=== PATIENT | female | born 1965 | race Hispanic/Latino ===

== ENCOUNTER 2017-03-21 10:44 | Outpatient (CLI) | payer OTHER ==
[2017-03-21 11:33] LABS: Hemoglobin 10.9 g/dL (12.0-16.0); Mean Corpuscular HGB CONC 33.4 g/dL (32.0-36.0); Mean Corpuscular Hemoglobin 29.7 pg (27.0-31.0); Mean Platelet Volume 5.6 fL (7.4-10.4); Platelet Count 401 thou/uL (130-400); RBC Distribution Width 13.7 % (11.5-14.5); Red Blood Cell (RBC) Count 3.66 mill/uL (4.20-5.40); White Blood Cell (WBC) Count 4.4 thou/uL (4.8-10.8)
== END 2017-03-21 10:45 | disposition home or self-care (01) ==
LOC: LABBT 10:44
PROVIDERS: ATTEND Obstetrics & Gynecology
DX: Z01.812 Encounter for preprocedural laboratory examination (principal); N92.0 Excessive and frequent menstruation with regular cycle
CPT/HCPCS: 85027; 86850; 86900; 86901

== ENCOUNTER 2017-03-23 09:57 | Day surgery (SDC) | payer OTHER ==
[2017-03-21 11:07] VITALS: BMI 31.8
--- NOTE | 2017-03-22 16:10 | HP ---
DATE OF PLANNED PROCEDURE: 03/23/2017 PREOPERATIVE DIAGNOSIS: Abnormal uterine bleeding PROCEDURES TO BE PERFORMED: Hysteroscopy and D&C. HISTORY OF PRESENT ILLNESS: Ms. Alanna Amaral is a 52-year-old G8, P4-0-4-4, referred for abnormal [place] bleeding. The patient gives a history of irregular bleeding as well as very heavy bleeding for the last few years. She has large clots, has menstrual accidents and complains of cramping that is v samreen intense. She has a history of anemia with hemoglobin of 9.0 in 11/2016. She denies any history of previous blood transfusions. She denies taking any medications in the past to help regulate her p eriod. On initial examination, an endometrial biopsy was indicated and due to cervical stenosis endo metrial biopsy was not able to be completed. The patient was counseled for the need for endometrial sampling to rule out hyperplasia or malignancy. CURRENT MEDICATIONS: Bupropion, cyclobenzaprine, hydrochlorothiazide, lamotrigine, levothyroxine, an d lisinopril. PAST MEDICAL HISTORY: Hypertension, hypothyroidism, depression and anxiety. PAST SURGICAL HISTORY: Tubal ligation and section. OBSTETRICAL HISTORY: Three vaginal deliveries, one section, 4 miscarriages. Her largest va ginal delivery was over 8-1/2 pounds. GYNECOLOGIC HISTORY: No history of STD or PID. Last Pap smear was normal per the patient report 201 [id number] and her last menstrual period began on 03/11/2017. SOCIAL HISTORY: The patient smokes 5 cigarettes a day. 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 ALLERGIES: She denies any allergies. FAMILY HISTORY: Significant for diabetes, stroke, and hypertension in her parents and siblings. REVIEW OF SYSTEMS: Negative except as stated in HPI. PHYSICAL EXAMINATION: VITAL SIGNS: Blood pressure 128/80, pulse 70, weight 177 pounds, BMI 31.4. GENERAL: No acute distress, alert and oriented, well-nourished. HEENT: Grossly normal. LUNGS: Clear to auscultation bilaterally. CARDIOVASCULAR: No clubbing, no murmurs, rubs or gallops. ABDOMEN: No guarding, no tenderness. No palpable masses. No hepatosplenomegaly. GENITOURINARY: Normal urethral meatus. Normal external female genitalia, normal vaginal mucosa, orquidea notic cervix with bleeding noted coming from the cervix, no cervical motion tenderness. No uterine t enderness, no adnexal masses or tenderness. Perineum normal. MUSCULOSKELETAL: Grossly normal. SKIN: Normal. DIAGNOSTIC STUDIES: Hemoglobin 10.3. Office ultrasound describes uterus at 10 x 4 cm with an endome trial stripe of 11.44 mm, small and normal appearing right and left ovaries and no free fluid. ASSESSMENT AND PLAN: Ms. Alanna Amaral is a 52-year-old multiparous female with history of menorrhagia with irregular cycle. We have discussed possible causes which are anovulatory or perimenopausal as well as the risk of hyperplasia or malignancy. The patient understands that there is an indication f or endometrial sampling, answer unable to complete in the office, it is recommended for her to underg o endometrial sampling with hysteroscopy, dilation and curettage. We discussed future management bas ed on the pathologic findings of dilation and curettage. The patient agrees and understands that fut ure options for management may include medical versus surgical with ablation versus hysterectomy. Th e patient's questions have been answered to her satisfaction. She understands the risks are to inclu de, but not limited to bleeding, infection, uterine perforation, inability to fully diagnose and jerome t all conditions at the time of surgery and possible need for future medical and/or surgical manageme nt.
[2017-03-23] MEDS ORDERED: CEFAZOLIN/Water 2 GM/20 ML SYRINGE ONE (10:34)
[2017-03-23] MEDS ORDERED: Midazolam HCl 2 mg/2 ml Vial ONE (11:37)
[2017-03-23] MEDS ORDERED: Fentanyl 100 MCG/2 ML VIAL ONE (11:38)
[2017-03-23] MEDS ORDERED: Meperidine HCl/PF 25 MG/ML VIAL ONE (11:38)
--- NOTE | 2017-03-23 14:20 | OP ---
DATE OF PROCEDURE: 03/23/2017 PREOPERATIVE DIAGNOSIS: Postmenopausal bleeding. POSTOPERATIVE DIAGNOSIS: Postmenopausal bleeding. PROCEDURES PERFORMED: Hysteroscopy, cervical dilation and curettage and hysteroscopic polypectomy. SURGEON: Curt Sotelo D.O. SERVICE MEMBER: None. ESTIMATED BLOOD LOSS: Less than 5 mL COMPLICATIONS: None. INTRAOPERATIVE FLUID DEFICIT: Approximately 400 mL. INTRAOPERATIVE FINDINGS: 1. Scarring at the external cervical os noted that is best described as a thin septum 2. Uterus sounds to 6 cm. 3. Intracervical polyp noted. 4. Proliferative appearing endometrium with polypoid-appearing tissue at the anterior aspect of the endometrium. 5. Tubal ostia identified bilaterally. 6. Normal vaginal mucosa. PROCEDURE DETAILS: The patient was taken back to the OR with IV fluids running. Once she was in the OR, anesthesia was obtained and the patient was placed in low dorsal lithotomy position. The vagina was prepped and draped in normal fashion for hysteroscopy. The bladder was drained with a red rubbe r catheter. An operative speculum was placed into the vagina after the surgeon was scrubbed in. The anterior lip of the cervix was grasped with a single tooth tenaculum. Close inspection of the cervi x revealed a septum at the ectocervix. The cervix was then serially dilated to offer passage of the hysteroscope. This was done without trauma or difficulty. Next, the hysteroscope was passed through the cervical canal under direct visualization. The polypoid-appearing tissue was noted at the endoc ervix. Uterine cavity was distended with the above findings noted. The TruClear incisor was used fo r polypectomy, both the endometrial and ectocervical polypoid appearing tissues. After these tissues were resected, the instruments were removed. Of note, prior to tissue resection, gentle curettage w as performed. The endometrial and endocervical tissues were sent for pathologic review. The curetti ngs were sent separate from the tissue resected with a hysteroscopic resector. At the end of the indra e, the tenaculum site was inspected and no bleeding was noted. There was no bleeding from the cervix . The operative speculum was removed. The patient was cleaned, dried, taken out of lithotomy and tr ansferred to recovery room in good condition.
[2017-03-23] MEDS ORDERED: Ondansetron HCl/PF 4 MG/2 ML Vial ONE (14:50)
[2017-03-23] MEDS ORDERED: Dexamethasone 20 MG/5 ML VIAL ONE (14:50)
[2017-03-23] MEDS ORDERED: Propofol 200 MG/20 ML VIAL ONE (14:50)
[2017-03-23] MEDS ORDERED: Lidocaine 1% PF 5 ML VIAL ONE (14:50)
== END 2017-03-23 14:15 | disposition home or self-care (01) ==
LOC: SDC 09:57
PROVIDERS: ATTEND Obstetrics & Gynecology
DX: N84.0 Polyp of corpus uteri (principal); F17.210 Nicotine dependence, cigarettes, uncomplicated; Z79.899 Other long term (current) drug therapy; Z98.51 Tubal ligation status; Z98.891 History of uterine scar from previous surgery; Z98.890 Other specified postprocedural states
CPT/HCPCS: 88305; J1100; J2001; J2175; J2250; J2405; J2704; J3010

== ENCOUNTER 2017-04-15 19:30 | Outpatient (CLI) | payer OTHER | END 2017-04-15 19:31 | disposition home or self-care (01) | LOC: SLEEPLAB 19:30 | PROVIDERS: ATTEND Student in an Organized Health Care Education/Training Program | DX: G47.33 Obstructive sleep apnea (adult) (pediatric) (principal); R53.83 Other fatigue; E66.9 Obesity, unspecified; K21.9 Gastro-esophageal reflux disease without esophagitis; F41.8 Other specified anxiety disorders; I10 Essential (primary) hypertension | CPT/HCPCS: 95810 ==

== ENCOUNTER 2017-05-16 19:30 | Outpatient (CLI) | payer OTHER | END 2017-05-16 19:31 | disposition home or self-care (01) | LOC: SLEEPLAB 19:30 | PROVIDERS: ATTEND Student in an Organized Health Care Education/Training Program | DX: G47.33 Obstructive sleep apnea (adult) (pediatric) (principal); E66.9 Obesity, unspecified; F41.8 Other specified anxiety disorders; I10 Essential (primary) hypertension; G47.52 REM sleep behavior disorder | CPT/HCPCS: 95811 ==

== ENCOUNTER 2017-07-21 15:11 | Outpatient (CLI) | payer OTHER | END 2017-07-21 15:12 | disposition home or self-care (01) | LOC: BICMAMMO 15:11 | PROVIDERS: ATTEND Obstetrics & Gynecology | DX: Z12.31 Encounter for screening mammogram for malignant neoplasm of breast (principal) | CPT/HCPCS: 77063; 77067 ==

== ENCOUNTER 2018-03-01 10:46 | Emergency (ER) | payer OTHER ==
[2018-03-01] MEDS ORDERED: Acetaminophen 500 MG TAB ONE (13:43)
[2018-03-01] MEDS ORDERED: Metoclopramide HCl 10 MG TAB PO SCH (14:00)
[2018-03-01] MEDS ORDERED: Ketorolac Tromethamine 30 MG/ML VIAL ONE (14:15)
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
== END 2018-03-01 15:07 | disposition home or self-care (01) ==
LOC: ERS 10:46
DX: S06.0X0A Concussion without loss of consciousness, initial encounter (principal); E03.9 Hypothyroidism, unspecified; I10 Essential (primary) hypertension; F41.9 Anxiety disorder, unspecified; F31.9 Bipolar disorder, unspecified; F20.9 Schizophrenia, unspecified; Z79.899 Other long term (current) drug therapy; W22.8XXA Striking against or struck by other objects, initial encounter
CPT/HCPCS: 70450; 72125; 96372; J1885

== ENCOUNTER 2018-05-08 11:43 | Emergency (ER) | payer OTHER ==
[2018-05-08] MEDS ORDERED: Ondansetron ODT 4 MG TAB ONE (12:17)
[2018-05-08 12:44] LABS: #Basophils 0.1 thou/uL (0.0-0.2); #Eosinphils 0.1 thou/uL (0.0-0.7); #Lymphocytes 2.6 thou/uL (1.20-3.40); #Monocytes 0.8 thou/uL (0.11-0.59); #Neutrophils 6.8 thou/uL (1.40-6.50); %Basophils 0.7 % (0.0-1.0); %Eosinophils 0.5 % (0.0-10.0); %Lymphocytes 24.9 % (21.0-51.0); %Monocytes 7.5 % (0.0-10.0); %Neutrophils 66.3 % (42.0-75.0); Hemoglobin 12.2 g/dL (12.0-16.0); Mean Corpuscular Hemoglobin 31.2 pg (27.0-31.0); Mean Corpuscular Volume 91.8 fL (78.0-98.0); Platelet Count 363 thou/uL (130-400); RBC Distribution Width 12.8 % (11.5-14.5); Red Blood Cell (RBC) Count 3.91 mill/uL (4.20-5.40); White Blood Cell (WBC) Count 10.3 thou/uL (4.8-10.8)
[2018-05-08 13:02] LABS: ALT (SGPT) 15 U/L (8-55); AST (SGOT) 13 U/L (5-34); Albumin 4.2 g/dL (3.5-5.0); Alkaline Phosphatase 77 U/L (40-150); Anion Gap 15 mmol/L (10-20); BUN (Urea Nitrogen) 11 mg/dL (9.8-20.1); Bilirubin, Total 0.6 mg/dL (0.2-1.2); Calc. Creatinine Clearance 0 mL/min (70-130); Calcium 9.6 mg/dL (7.8-10.44); Carbon Dioxide 22 mmol/L (22-29); Chloride 96 mmol/L (98-107); Estimated GFR-MDRD 59; Glucose 170 mg/dL (70-105); Potassium 3.1 mmol/L (3.5-5.1); Protein, Total 7.2 g/dL (6.0-8.3); Sodium 130 mmol/L (136-145)
[2018-05-08] MEDS ORDERED: Potassium Chloride 20 MEQ TAB ONE (14:01)
--- NOTE | 2018-05-13 23:35 | EKG ---
Test Reason : DIZZINESS/SYNCOPE Blood Pressure : / mmHG Vent. Rate : 059 BPM Atrial Rate : 059 BPM P-R Int : 158 ms QRS Dur : 106 ms QT Int : 460 ms P-R-T Axes : 028 -33 -02 degrees QTc Int : 455 ms Sinus bradycardia Left axis deviation Abnormal ECG Confirmed by NAIMA FLORES, KAILA ([id number]), news videotape editor JOHN SERRATO ([id number]) on 05/13/2018 11:35:11 PM Referred By: NAIMA Confirmed By:KAILA MCNAMARA MD
== END 2018-05-08 14:46 | disposition home or self-care (01) ==
LOC: ERS 11:43
DX: T40.4X1A Poisoning by other synthetic narcotics, accidental (unintentional), initial encounter (principal); I10 Essential (primary) hypertension; K21.9 Gastro-esophageal reflux disease without esophagitis; F41.9 Anxiety disorder, unspecified; F20.9 Schizophrenia, unspecified; E03.9 Hypothyroidism, unspecified; Z79.899 Other long term (current) drug therapy
CPT/HCPCS: 36415; 80053; 85025; 93005; 96360; 96361; Q0162

== ENCOUNTER 2018-12-08 19:23 | Emergency (ER) | payer OTHER ==
[2018-12-08] MEDS ORDERED: Ketorolac Tromethamine 60 MG/2 ML VIAL ONE (21:12)
[2018-12-08] MEDS ORDERED: Diazepam 5 MG TAB ONE (21:50)
== END 2018-12-08 21:55 | disposition home or self-care (01) ==
LOC: ERS 19:23
DX: M54.41 Lumbago with sciatica, right side (principal); E03.9 Hypothyroidism, unspecified; I10 Essential (primary) hypertension; K21.9 Gastro-esophageal reflux disease without esophagitis; Z79.899 Other long term (current) drug therapy
CPT/HCPCS: 96372; 99283; J1885

== ENCOUNTER 2019-06-03 15:01 | Emergency (ER) | payer OTHER ==
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
--- NOTE | 2019-06-03 16:23 | RAD ---
XR Wrist 3 Lt View STANDARD History: Pain Comparison: None. Findings: No acute displaced fracture or malalignment. Advanced degenerative disease of the thumb car pometacarpal joint. Subtle widening of the scapholunate interval. Ulnar styloid process is intact. Impression: 1. No acute fracture or malalignment. 2. Advanced degenerative disease of the thumb carpometacarpal joint. 3. Incompletely evaluated 2 to 3 mm ovoid radiopacity projecting over the volar soft tissues at the l evel of the small finger metacarpal neck.
[2019-06-03] MEDS ORDERED: Ketorolac Tromethamine 30 MG/ML VIAL ONE (16:51)
== END 2019-06-03 17:15 | disposition home or self-care (01) ==
LOC: ERS 15:01
DX: S42.252A Displaced fracture of greater tuberosity of left humerus, initial encounter for closed fracture (principal); S16.1XXA Strain of muscle, fascia and tendon at neck level, initial encounter; S39.012A Strain of muscle, fascia and tendon of lower back, initial encounter; S60.222A Contusion of left hand, initial encounter; E03.9 Hypothyroidism, unspecified; I10 Essential (primary) hypertension; K21.9 Gastro-esophageal reflux disease without esophagitis; F41.9 Anxiety disorder, unspecified; Z87.891 Personal history of nicotine dependence; Z79.899 Other long term (current) drug therapy; V53.6XXA Passenger in pick-up truck or van injured in collision with car, pick-up truck or van in traffic accident, initial encounter
CPT/HCPCS: 70450; 71045; 72125; 96372; J1885

== ENCOUNTER 2019-08-29 09:00 | Outpatient (CLI) | payer OTHER ==
--- NOTE | 2019-08-29 10:45 | MRI ---
MR of the left shoulder without contrast INDICATION: Left shoulder pain. Left rotator cuff tear TECHNIQUE: Sagittal T1, axial and coronal PD fat sat, sagittal and coronal T2 fat sat images were obt ained of the left shoulder. COMPARISON: Left shoulder radiograph dated June 03, 2019 FINDINGS: Motion artifact limits image detail. Rotator cuff: There is moderate tendinosis of the supraspinatus and infraspinatus without evidence of a full-thickness tear. Subscapularis and teres minor are intact. Glenohumeral joint: Articular cartilage is intact. Glenoid labrum: Intact Biceps tendon and biceps anchor: Intact and located. Acromion clavicular joint: There is mild AC joint osteoarthrosis. Subacromial subdeltoid space: There is mild/moderate fluid in the subacromial subdeltoid bursa. Axillary region: No lymphadenopathy. Surrounding shoulder musculature: Normal. No evidence of atrophy or strain. IMPRESSION: 1. Moderate superior space and infraspinatus tendinosis without evidence of full-thickness tear. 2. Tlsu-of-[id number] fluid in the subacromial subdeltoid bursa may reflect sequela of mild bursitis. 3. Mild AC joint osteoarthrosis.
== END 2019-08-29 09:01 | disposition home or self-care (01) ==
LOC: BICMRI 09:00
PROVIDERS: ATTEND Orthopaedic Surgery
DX: M75.102 Unspecified rotator cuff tear or rupture of left shoulder, not specified as traumatic (principal); M19.012 Primary osteoarthritis, left shoulder; M75.92 Shoulder lesion, unspecified, left shoulder; M25.412 Effusion, left shoulder

== ENCOUNTER 2019-12-18 09:46 | Outpatient (CLI) | payer OTHER ==
--- NOTE | 2019-12-18 12:57 | ULT ---
ULTRASOUND THYROID: Date: 12/18/2019 HISTORY: Thyroid nodule. COMPARISON: CT cervical spine 10/10/2019. FINDINGS: Real-time B[place] scale and color evaluation of the thyroid is performed. Thyroid is relatively small, with the right lobe measuring 3.7 x 0.9 x 1.3 cm, and the left lobe jonh uring 3.1 x 0.6 x 1.1 cm. The isthmus is less than 2.0 mm in AP dimension. In the right lobe of the thyroid is a solid, hypoechoic nodule, which is taller than wide, measuring up to 1.1 cm in size, with well-defined margins and without echogenic foci. This nodule is TI-RADS 5 - Highly suspicious. Fine needle aspiration is recommended. In the left lobe is a solid, isoechoic, wider than tall, nodule with well-defined margins and without echogenic foci. This nodule measures up to 1.0 cm in size. This is a TI-RADS 3 - Mildly suspicious n odule. No aspiration or follow-up is required. IMPRESSION: Right lobe of thyroid nodule is TI-RADS 5 - Highly suspicious. Fine needle aspiration is recommended. CODE T. POS: OFF
== END 2019-12-18 09:47 | disposition home or self-care (01) ==
LOC: BICULT 09:46
PROVIDERS: ATTEND Internal Medicine Cardiovascular Disease
DX: E04.1 Nontoxic single thyroid nodule (principal)
CPT/HCPCS: 76536

== ENCOUNTER 2020-02-01 10:04 | Outpatient (CLI) | payer OTHER ==
[2020-02-02 16:11] LABS: SARS-CoV-2 MS2 Positive; SARS-CoV-2 N Gene Negative; SARS-CoV-2 S Gene Negative; SARS-CoV-2 by NAA Not Detected (NotDetected); SARS-CoV-2 orf1ab Negative
== END 2020-02-01 10:05 | disposition home or self-care (01) ==
LOC: LABBT 10:04
PROVIDERS: ATTEND Neurological Surgery
DX: E04.1 Nontoxic single thyroid nodule (principal); Z20.828 Contact with and (suspected) exposure to other viral communicable diseases
CPT/HCPCS: 87635; U0003

== ENCOUNTER 2020-02-05 10:31 | Outpatient (CLI) | payer OTHER ==
--- NOTE | 2020-02-05 12:26 | MRI ---
EXAM: Lumbar spine MRI without contrast. HISTORY: Lumbago, left-sided pain COMPARISON: None FINDINGS: Multiplanar, multisequence MRI examination of the lumbar spine is performed. The conus medullaris region appears unremarkable. Significant facet arthrosis changes at L4-L5 worse on the right side with minimal adjacent marrow charmaine ma and prominent subchondral and synovial cystic changes. T12-L1 disc level: Mild left central disc osteophyte with very minute indention of the ventral thecal sac L1-L2 disc level: Unremarkable. L2-L3 disc level: Unremarkable. L3-L4 disc level: Very mild disc bulging with very mild lateral recess stenosis bilaterally. L4-L5 disc level: Moderate to severe central canal and lateral recess stenosis and moderate bilateral foraminal stenosis. L5-S1 disc level: Unremarkable. IMPRESSION: Evidence for lumbar spondylosis. Stenosis most marked at L4-L5 disc level with prominent facet arthro sis changes as above.
== END 2020-02-05 10:32 | disposition home or self-care (01) ==
LOC: BICMRI 10:31
PROVIDERS: ATTEND Family Medicine
DX: M54.42 Lumbago with sciatica, left side (principal); M47.816 Spondylosis without myelopathy or radiculopathy, lumbar region; M48.061 Spinal stenosis, lumbar region without neurogenic claudication; M46.96 Unspecified inflammatory spondylopathy, lumbar region
CPT/HCPCS: 72148

== ENCOUNTER 2020-02-06 12:37 | Day surgery (SDC) | payer OTHER ==
[2020-02-05 15:36] VITALS: BMI 33.6
[2020-02-06] MEDS ORDERED: Sodium Bicarbonate 2.5 MEQ/5 ML VIAL ONE (12:48)
[2020-02-06] MEDS ORDERED: Lidocaine 1% PF 5 ML VIAL ONE (12:48)
--- NOTE | 2020-02-06 14:00 | ULT ---
Ultrasound-guided fine-needle aspiration of right thyroid nodule: 02/06/2020 COMPARISON: Thyroid ultrasound 12/18/2019 HISTORY: Right thyroid nodule for which fine-needle aspiration was recommended FINDINGS: Informed consent was obtained prior to the procedure. The nodule within the right lobe of t he thyroid gland is reidentified. Skin overlying this lesion is prepped and draped in normal sterile fashion and anesthetized with 1% buffered lidocaine. With direct ultrasound guidance, 4 25-gauge fine-needle aspirations were obtained. The needle is seen to extend into the nodule on all 4 passes. 4 fine-needle aspiration specimen provided to the pathology personnel at the bedside. Patient tolerated the procedure well. Postprocedural imaging demonstrates no evidence for post biopsy hemorrhage IMPRESSION: Successful fine-needle aspiration of right thyroid nodule as above.
[2020-02-06 14:05] VITALS: BP 122/71; TEMP 97.7
== END 2020-02-06 13:50 | disposition home or self-care (01) ==
LOC: ULT 12:37
PROVIDERS: ATTEND Otolaryngology Plastic Surgery within the Head & Neck
PROC: BG44ZZZ Ultrasonography of Thyroid Gland (ICD-10-PCS; principal; 2020-02-06)
PROC: 0GJ Endocrine System, Inspection (ICD-10-PCS; principal; 2020-02-06)
DX: E04.1 Nontoxic single thyroid nodule (principal); K21.9 Gastro-esophageal reflux disease without esophagitis; J34.3 Hypertrophy of nasal turbinates; J30.9 Allergic rhinitis, unspecified; F17.200 Nicotine dependence, unspecified, uncomplicated; Z79.899 Other long term (current) drug therapy; Z88.5 Allergy status to narcotic agent
CPT/HCPCS: 60100; 76942; 88173

== ENCOUNTER 2020-06-09 14:01 | Outpatient (CLI) | payer OTHER | END 2020-06-09 14:02 | disposition home or self-care (01) | LOC: TBSIIMAG 14:01 | PROVIDERS: ATTEND Neurological Surgery | DX: M47.26 Other spondylosis with radiculopathy, lumbar region (principal) | CPT/HCPCS: 72100 ==